=== PATIENT | female | born 1995 | race Caucasian/White ===

== ENCOUNTER 2017-04-14 04:00 | Inpatient (IN) | payer BC, OTHER ==
--- NOTE | ~2017-04-14 | DS ---
Unit #: [id number] #: [id number] Patient: CRYSTAL CUENCA [id number] [facility] [address] [place] [address] [id number] MR#: [id number] NAME: CRYSTAL CUENCA. ROOM: [facility] Age: 21 Sex: F Admission Date: 04/14/2017 : 1995 Discharge Date: 04/17/2017 Attending Physician: Ger Solorio M.D. Primary Care Physician: Generic Doctor Not In System DISCHARGE SUMMARY REASON FOR ADMISSION Depression. DIAGNOSTIC STUDIES Laboratory data unremarkable. HOSPITAL COURSE The patient was admitted to inpatient unit on 04/14 and discharged on 04/17/2017. The patient was treated on the inpatient unit with group therapy, individual therapy, medication management, expressive therapy, structured milieu. The patient was responsive to treatment and showed improvement in her mood and affect, able to contract for safety. Subsequently, the patient was discharged with the plan to follow up in outpatient program. DISCHARGE DIAGNOSES [place] I Major depressive disorder, recurrent, severe, F33.2. Rule out bipolar mood disorder, recurrent, depressed, F31.9 [place] II Deferred. [place] III Hypothyroidism. Lymphedema of legs. Hypertension. Obesity. [place] IV Psychosocial stressors. [place] V INSTRUCTIONS TO PATIENT The patient is to follow up in outpatient clinic as well as geriatric social worker. DISCHARGE MEDICATIONS 1. Prozac 40 mg daily for depression 2. Abilify 10 mg daily for mood stabilization 3. Vistaril 25 mg three times a day for anxiety CONDITION AT DISCHARGE The patient is pleasant and cooperative, denied any psychotic symptoms or any suicidal ideation. PROGNOSIS Guarded. DIET AND ACTIVITY Unit #: [id number] #: [id number] Patient: CRYSTAL CUENCA As tolerated. Dictated by... Cristy Padron/cathleen TD: 04/18/2017 09:56 JOB #: [id number] DISCHARGE SUMMARY Page 1 of 1 X Ger Solorio MD X DISCHARGE SUMMARY
--- NOTE | ~2017-04-14 | PN ---
Unit #: [id number] #: [id number] Patient: CRYSTAL CUENCA [id number] [facility] [address] [place] [address] [id number] MR#: [id number] NAME: CRYSTAL CUENCA. ROOM: [facility] Age: 21 Sex: F Admission Date: 04/14/2017 : 1995 Attending Physician: Ger Solorio M.D. Admitting Physician: Ger Solorio M.D. Primary Care Physician: Generic Doctor Not In System [facility] PROGRESS NOTES DATE OF SERVICE 04/16/2017 DISCUSSION Ms. Jaimes is a 21-year-old female seen on 04/16/2017. The patient interviewed, chart reviewed. Obtained information from nursing staff. The patient continues to report feeling sad, depressed, withdrawn, isolative, flat affect, guarded, but able to maintain safe behavior. Complete Review of Systems: Unremarkable. MENTAL STATUS EXAMINATION General Appearance: The patient dressed casually. Attention span, concentration: Fair. Oriented in place and person. Mood and affect: Sad, dysphoric. Speech: Monotone. Thought process: [place]. The patient denied any thoughts of harming self or others. Recent and remote memory: Poor. Insight and judgment: Poor. DIAGNOSIS Mood disorder not otherwise specified. ASSESSMENT/PLAN Advised to continue with current medication and therapeutic protocol. If needed, consider further adjustment of medication. Dictated by... Cristy Padron/reed TD: 04/17/2017 09:46 JOB #: [id number] Unit #: [id number] #: [id number] Patient: CRYSTAL CUENCA PROGRESS NOTES Page 1 of 1 X Ger Solorio MD PROGRESS NOTE
--- NOTE | ~2017-04-14 | HP ---
Unit #: [id number] #: [id number] Patient: CRYSTAL CUENCA [id number] [place] [address] [id number] I MR#: [id number] NAME: CRYSTAL CUENCA. ROOM: [facility] Age: 21 Sex: F Admission Date: 04/14/2017 : 1995 Attending Physician: Ger Solorio M.D. Admitting Physician: Ger Solorio M.D. Primary Care Physician: Generic Doctor Not In System HISTORY AND PHYSICAL HISTORY OF PRESENT ILLNESS The patient is a 21-year-old female admitted to [facility] on 04/14/2017, for suicidal ideation. PAST MEDICAL HISTORY 1. Obesity 2. Hypertension 3. Lymphedema 4. Hypothyroidism PAST SURGICAL HISTORY 1. Hernia 2. Tonsils and adenoids 3. PDA repair SOCIAL HISTORY She is unemployed. She is a sophomore in college. She lives with her parents. She denies tobacco and drug use, but uses alcohol socially. FAMILY MEDICAL HISTORY Noncontributory ALLERGIES Vancomycin CURRENT MEDICATIONS The patient is not on any home medications. REVIEW OF SYSTEMS CONSTITUTIONAL: No fever or chills. HEENT: Denies any sore throat, ear pain or runny nose. CARDIOVASCULAR: Denies chest pain, irregular heart rhythm or palpitations. CHEST: Denies shortness of breath or cough. No hemoptysis. GASTROINTESTINAL: Denies nausea, vomiting, diarrhea or chronic constipation. ENDOCRINE: Denies history of increased thirst or urination. No recent significant weight loss or gain. GENITOURINARY: Denies dysuria, frequency, or hematuria. SKIN: Denies any rashes. HEMATOLOGIC: Denies history of increased bleeding or bruising. MUSCULOSKELETAL: Denies any hot, swollen joints. No generalized muscle pain. NEUROLOGIC: Denies problems with vision or speech. No frequent, severe headaches. No numbness, tingling or weakness in any extremities. Denies Unit #: [id number] #: [id number] Patient: CRYSTAL CUENCA loss of bladder or bowel control. PHYSICAL EXAMINATION GENERAL: She is awake, alert, and oriented in no acute distress. VITAL SIGNS: Temperature 99.7, heart rate 76, respirations 16, blood pressure 118/76. HEIGHT: 4 feet 8 inches WEIGHT: 200 pounds SKIN: Warm and dry without rash or lesion. HEENT: Normocephalic. TMs not viewed. Oral and nasal passages clear. Conjunctivae clear. PERRLA. EOMs intact. NECK: Supple without lymphadenopathy or thyromegaly. HEART: Regular rate and rhythm without murmur. LUNGS: Clear. ABDOMEN: Soft, nontender. : Not done. EXTREMITIES: No evidence of cyanosis, clubbing or edema. Moves all without focal deficit. NEUROLOGICAL: Grossly within normal limits. Cranial Nerves: II: Visual schmitt are intact. III, IV AND : Extraocular movements are intact. Pupils are equal, round and reactive to light. V: Facial sensation is grossly normal. VII: Facial movements and expression are normal. VIII: Auditory acuity grossly intact. IX, X: Uvula is midline. Phonation is normal. XI: Patient shrugs shoulders and turns head normally. XII: Tongue protrudes in the midline. Sensory and Motor Function: Sensory and motor sensation is grossly normal. Motor: moves all extremities well. IMPRESSION 1. Psychiatric admission. 2. Obesity. 3. Hypertension. 4. Lymphedema. 5. Hypothyroidism. RECOMMENDATIONS 1. Psychiatric, per psychiatrist. 2. Medical, no contraindications to participating in facility activities. MEDICAL PROGNOSIS Good. MEDICAL CONDITION Stable. Dictated by... Miranda Reaves/miles TD: 04/15/2017 13:55 Unit #: [id number] #: [id number] Patient: CRYSTAL CUENCA JOB #: [id number] HISTORY AND PHYSICAL Page 1 of 1 X CHUY PRAKASH APRN HISTORY AND PHYSICAL
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
--- NOTE | ~2017-04-14 | PN ---
Unit #: [id number] #: [id number] Patient: CRYSTAL CUENCA [id number] [facility] [address] [place] [address] [id number] MR#: [id number] NAME: CRYSTAL CUENCA. ROOM: 86 Age: 21 Sex: F Admission Date: 04/14/2017 : 1995 Attending Physician: Ger Solorio M.D. Admitting Physician: Ger Solorio M.D. Primary Care Physician: Generic Doctor Not In System [facility] PROGRESS NOTES DATE OF SERVICE 04/15/17 DISCUSSION Ms. Jaimes is a 21-year-old female seen on 04/15/17. Patient compliant, cooperative; mood sad, dysphoric; flat affect; tolerating medication fairly well. Patient still having passive suicidal ideation but no plan and able to contract for safety, still seclusive, isolative. COMPLETE REVIEW OF SYSTEMS Unremarkable. MENTAL STATUS EXAMINATION GENERAL APPEARANCE: Patient dressed casually, moderately obese. ATTENTION SPAN AND CONCENTRATION: Fair. Oriented in place and person. MOOD AND AFFECT: Sad, dysphoric. SPEECH: Monotone. THOUGHT PROCESS: [place]. Patient denied any thoughts of harming self or others. RECENT AND REMOTE MEMORY: Poor. INSIGHT AND JUDGMENT: Poor. DIAGNOSIS Major depressive disorder, recurrent, severe ASSESSMENT/PLAN Advised to continue with current medication and therapeutic protocol. If needed, consider further adjustment in medication. Dictated by... Cristy Padron/jose j TD: 04/15/2017 22:47 JOB #: [id number] Unit #: [id number] #: [id number] Patient: CRYSTAL CUENCA [facility] PROGRESS NOTES Page 1 of 1 X Ger Solorio MD PROGRESS NOTE
[2017-04-16 09:51] LABS: URINE APPEARANCE TURBID; URINE BILIRUBIN NEG (NEG); URINE BLOOD 1+ (NEG); URINE COLOR YELLOW; URINE GLUCOSE NEG (NEG); URINE KETONE NEG (NEG); URINE LEUKOCYTE ESTERASE 1+ (NEG); URINE NITRATE NEG (NEG); URINE PROTEIN NEG (NEG); URINE SPECIFIC GRAVITY 1.027 (1.003-1.035); URINE UROBILINOGEN 0.2 MG/DL (NEG)
[2017-04-16 09:59] LABS: URINE BACTERIA AUWI 1+ (NEGATIVE); URINE SQUAMOUS EPITHELIAL CELL FEW /[HPF]; UWBCS1 AUWI 25-50 (0-5)
[2017-04-16 10:15] LABS: URINE AMORPHOUS SEDIMENT AMORP URATES; URINE CRYSTALS CALCIUM OXALATE /[HPF]
[2017-04-16 10:17] LABS: URBCS1 AUWI 0-2 /[HPF] (0-2)
== END 2017-04-17 14:20 | disposition home or self-care (01) | DRG 885 ==
LOC: EDSEX 14:38 → P1E 14:38
PROVIDERS: Psychiatry & Neurology Psychiatry
DX: F33.2 Major depressive disorder, recurrent severe without psychotic features (principal); I10 Essential (primary) hypertension; E03.9 Hypothyroidism, unspecified; I89.0 Lymphedema, not elsewhere classified; E66.9 Obesity, unspecified; Z56.0 Unemployment, unspecified
CPT/HCPCS: 81003